=== PATIENT | female | born 1950 | race Caucasian/White ===

== ENCOUNTER 2022-10-25 10:22 | Outpatient (REF) | payer BC, SELFPAY ==
[2022-10-25 13:37] LABS: Bilirubin Negative (Negative); Blood Large (Negative); Clarity Sl Cloudy (Clear); Glucose Negative (Negative); Ketones Negative (Negative); Leukocyte Esterase Large (Negative); Nitrite Negative (Negative); Specific Gravity <= 1.005 (1.005-1.025); Urobilinogen 0.2 mg/dL (Up to 0.2)
[2022-10-25 14:01] LABS: C & S Indicated? Yes; WBC >50 HPF (0-5)
== END 2022-10-25 10:23 | disposition home or self-care (01) ==
LOC: LBN 10:22
PROVIDERS: Visit Provider Nurse Practitioner Family
DX: R30.0 Dysuria (principal); N39.0 Urinary tract infection, site not specified
CPT/HCPCS: 81003; 81015; 87086